=== PATIENT | female | born 2000 | race African-American/Black ===

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

== ENCOUNTER 2020-01-04 19:25 | Emergency (ER) | payer OTHER ==
[~2020-01-04] VITALS: Ht 167.6 cm; Wt 53.0 kg
[2020-01-04 19:30] VITALS: BP 100/66
[2020-01-04] MEDS ORDERED: PRED-220 PO (20:11)
--- NOTE | 2020-01-04 20:12 | PHYS DOC ---
Past History Past Medical History: No Pertinent History Past Surgical History: Other Additional Past Surgical Histo: WISDOM TEETH Alcohol Use: Occasionally Drug Use: None General Adult EDM: Chief Complaint: INSECT BITE HPI: HPI: 19-year-old female presents with concern of insect bites. She has a couple areas on her abdomen that are pruritic as well as her left shoulder and a small area on her left knee. She further indicates that she is having some itching down around her labia and she thinks they are swollen. She does not know why this would be. She has not shaved her pubic hair since the symptoms started. She was outside washing her car yesterday and saw a bunch of small black bugs. She was wearing shorts and a tank top. She was not sure that she got bit but cannot rule it out. She denies vaginal discharge or change in odor. She is not concerned about STD. She has an OB appointment coming up. Review of Systems: Review of Systems: Constitutional: Denies fever or chills Eyes: Denies change in visual acuity HENT: Denies nasal congestion or sore throat Respiratory: Denies cough or shortness of breath Cardiovascular: Denies chest pain or edema GI: Denies abdominal pain, nausea, vomiting, bloody stools or diarrhea : swelling of labia Musculoskeletal: Denies back pain or joint pain Integument: Rash Neurologic: Denies headache, focal weakness or sensory changes Endocrine: Denies polyuria or polydipsia Lymphatic: Denies swollen glands Psychiatric: Denies depression or anxiety Heart Score: Risk Factors: Risk Factors: DM, Current or recent (<one month) smoker, HTN, HLP, family history of CAD, obesity. Risk Scores: Score 0 - 3: 2.5% MACE over next 6 weeks - Discharge Home Score 4 - 6: 20.3% MACE over next 6 weeks - Admit for Clinical Observation Score 7 - 10: 72.7% MACE over next 6 weeks - Early Invasive Strategies Allergies: Allergies: Allergies Coded Allergies Type Severity Reaction Last Updated Verified ciprofloxacin Allergy Unknown 06/05/19 Yes Physical Exam: PE: Constitutional: Well developed, well nourished, no acute distress, non-toxic appearance. [] HENT: Normocephalic, atraumatic, bilateral external ears normal, oropharynx moist, no oral exudates, nose normal. [] Eyes: PERRLA, EOMI, conjunctiva normal, no discharge. [] Neck: Normal range of motion, no tenderness, supple, no stridor. [] Cardiovascular: Heart rate regular rhythm, no murmur [] Lungs & Thorax: Bilateral breath sounds clear to auscultation [] Abdomen: Bowel sounds normal, soft, no tenderness, no masses, no pulsatile masses. [] Skin: Small erythematous patches that are flat of the abdomen, left shoulder, left knee. There are couple well-circumscribed papules in the cleft of the buttocks. No obvious insect bite locations. [] Back: No tenderness, no CVA tenderness. [] Extremities: No tenderness, no cyanosis, no clubbing, ROM intact, no edema. [] Neurologic: Alert and oriented X 3, normal motor function, normal sensory function, no focal deficits noted. [] Psychologic: Affect normal, judgement normal, mood normal. : Patient's external and internal labia did not appear significantly swollen. [] Current Patient Data: Labs: Laboratory Tests Test 01/04/20 20:03 POC Urine HCG, Qualitative hcg negative (Negative) EKG: EKG: [] Radiology/Procedures: Radiology/Procedures: [] Course & Med Decision Making: Course & Med Decision Making Pertinent Labs and Imaging studies reviewed. (See chart for details) Patient does appear to have some areas of skin irritation. I am not sure if these are insect bites if she got another substance on her skin that is any irritants. I will go and treat her with prednisone for 4 days. We will give the first dose in the ED. she is stable for discharge at this time. [] Sunny Disclaimer: Sunny Disclaimer: This electronic medical record was generated, in whole or in part, using a voice recognition dictation system. Departure Departure: Impression: Primary Impression: Rash and nonspecific skin eruption Disposition: 01 HOME SELF CARE/HOMELESS Condition: STABLE Referrals: ELLIOT PATEL (PCP) Patient Instructions: Rash, [id number] Scripts Prednisone (PREDNISONE) 10 Mg Tablet 40 MG PO DAILY for rash for 3 Days, #12 TAB Prov: MAURICE CHANCE DO 01/04/20 MAURICE CHANCE DO Jan 04, 2020 20:12
[2020-01-04] MEDS ORDERED: predniSONE 10 MG TABLET PO ONE (20:15)
[2020-01-04 20:28] LABS: AMPHETAMINE/METHAMPHETAMINE NEG (NEG); BARBITURATES NEG (NEG); BENZODIAZEPINES NEG (NEG); CANNABINOIDS POS (NEG); COCAINE NEG (NEG); METHADONE NEG (NEG); OPIATES NEG (NEG); PHENCYCLIDINE NEG (NEG)
[2020-01-04 20:36] LABS: BILIRUBIN,URINE NEG (NEG); CLARITY,URINE HAZY; COLOR,URINE YELLOW; GLUCOSE,URINE NEG (NEG)
[2020-01-04 20:37] LABS: NITRITE,URINE NEG (NEG); UROBILINOGEN,URINE 0.2 mg/dL (0.2 mg/dL)
[2020-01-04 20:38] LABS: BACTERIA,URINE MOD /HPF (0-FEW); RBC,URINE RARE /HPF (0-2); SQUAMOUS EPITHELIAL CELL,UR FEW /LPF
== END 2020-01-04 20:25 | disposition home or self-care (01) ==
LOC: ER 19:25
DX: R21 Rash and other nonspecific skin eruption (principal); L29.9 Pruritus, unspecified; N94.89 Other specified conditions associated with female genital organs and menstrual cycle; Z88.1 Allergy status to other antibiotic agents
CPT/HCPCS: 36415; 80307; 81001; 81025; 87086; 99283; J7512

== ENCOUNTER 2020-07-04 05:07 | Emergency (ER) | payer OTHER ==
[~2020-07-04] VITALS: Ht 175.3 cm; Wt 54.5 kg
[~2020-07-04 05:07] MED LIST: PRED-220 PO
[2020-07-04 05:19] VITALS: BP 121/89
[2020-07-04] MEDS ORDERED: ONDANSETRON PF 4 MG/2 ML VIAL. IVP ONE (05:30)
[2020-07-04] MEDS ORDERED: IV NORMAL SALINE 1,000ML 1,000 ML IV ONE (05:30)
--- NOTE | 2020-07-04 05:36 | PHYS DOC ---
Past History Past Medical History: No Pertinent History (MAURICE CHANCE DO) Past Surgical History: Other Additional Past Surgical Histo: WISDOM TEETH (MAURICE CHANCE DO) Additional Smoking Information: vape pen Alcohol Use: None Drug Use: None (MAURICE CHANCE DO) General Adult EDM: Chief Complaint: WEAKNESS/GENERALIZED HPI: HPI: 19-year-old female presents after taking an unknown substance at home. The patient was having an argument with her boyfriend and she took a pill that was not marked that she had at home. She thought it was a Xanax. This was between 90 and 120 minutes ago. The patient now feels tired and her boyfriend believes her mentation is slower than normal. She denies fever or chills. She has some mild nausea. She was not trying to harm herself. She states that she only took 1 pill. She has no other complaints at this time. (MAURICE CHANCE DO) Review of Systems: Review of Systems: Constitutional: Denies fever or chills Eyes: Denies change in visual acuity HENT: Denies nasal congestion or sore throat Respiratory: Denies cough or shortness of breath Cardiovascular: Denies chest pain or edema GI: Nausea. Denies abdominal pain, vomiting, bloody stools or diarrhea : Denies dysuria Musculoskeletal: Denies back pain or joint pain Integument: Denies rash Neurologic: Fatigued, altered mental status. Endocrine: Denies polyuria or polydipsia Lymphatic: Denies swollen glands Psychiatric: Denies depression or anxiety (MAURICE CHANCE DO) Current Medications: Current Meds: Current Medications Medications (Trade) Dose Ordered Sig/Fer Start Time Stop Time Status Last Admin Dose Admin Sodium Chloride 1,000 ml @ 1,000 mls/hr 1X ONCE 07/04/20 05:30 07/04/20 06:29 (MAURICE CHANCE DO) Allergies: Allergies: Allergies Coded Allergies Type Severity Reaction Last Updated Verified ciprofloxacin Allergy Unknown 07/04/20 Yes (MAURICE CHANCE DO) Physical Exam: PE: Constitutional: Well developed, well nourished, no acute distress, mildly intoxicated appearance. [] HENT: Normocephalic, atraumatic, bilateral external ears normal, oropharynx moist, no oral exudates, nose normal. [] Eyes: PERRLA, EOMI, conjunctiva normal, no discharge. [] Neck: Normal range of motion, no tenderness, supple, no stridor. [] Cardiovascular: Heart rate regular rhythm, no murmur [] Lungs & Thorax: Bilateral breath sounds clear to auscultation [] Abdomen: Bowel sounds normal, soft, no tenderness, no masses, no pulsatile masses. [] Skin: Warm, dry, no erythema, no rash. [] Back: No tenderness, no CVA tenderness. [] Extremities: No tenderness, no cyanosis, no clubbing, ROM intact, no edema. [] Neurologic: Alert and oriented X 3, normal motor function, normal sensory function, no focal deficits noted. Answers questions appropriately. Slow to answer questions. [] Psychologic: Affect normal, judgement normal, mood normal. [] (MAURICE CHANCE DO) PE: Constitutional: Well developed, well nourished, no acute distress, non-toxic appearance HENT: Normocephalic, atraumatic Eyes: PERRL, EOMI, conjunctiva normal, no discharge Neck: Normal range of motion, no tenderness, supple Lungs & Thorax: No respiratory distress, equal chest rise and fall Abdomen: Soft, no tenderness Skin: Warm, dry, no erythema, no rash Back: No tenderness, no CVA tenderness Extremities: No tenderness, ROM intact, no edema Neurologic: Alert and oriented X 3, normal motor function, normal sensory function, no focal deficits noted Psychologic: Affect normal, judgment normal (CINTIA PATEL DO) Current Patient Data: Vital Signs: Vital Signs Date Time Temp Pulse Resp B/P (MAP) Pulse Ox O2 Delivery O2 Flow Rate FiO2 07/04/20 05:19 98.8 69 16 121/89 (100) 100 (MAURICE CHANCE DO) EKG: EKG: [] (MAURICE CHANCE DO) Radiology/Procedures: Radiology/Procedures: [] (MAURICE CHANCE DO) Heart Score: C/O Chest Pain: N/A Risk Factors: Risk Factors: DM, Current or recent (<one month) smoker, HTN, HLP, family history of CAD, obesity. Risk Scores: Score 0 - 3: 2.5% MACE over next 6 weeks - Discharge Home Score 4 - 6: 20.3% MACE over next 6 weeks - Admit for Clinical Observation Score 7 - 10: 72.7% MACE over next 6 weeks - Early Invasive Strategies (MAURICE CHANCE DO) Course & Med Decision Making: Course & Med Decision Making Pertinent Labs and Imaging studies reviewed. (See chart for details) The patient appears to be mildly intoxicated or altered. She is able to answer questions. She is fully aware of her surroundings. I have ordered for Zofran, liter normal saline, lab and urine work-up. These are pending at this time. I am signing the patient out to Dr. Patel at 0600. [] (MAURICE CHANCE DO) Course & Med Decision Making 0600- sign out received from Dr. Chance for patient with generalized malaise after taking some "unknown "pill. Patient's labs pending at time of signout. Patient seen and evaluated by myself. Labs without significant abnormality. Patient stable for discharge with outpatient follow-up with PCP. Discussed findings and plan with patient, who acknowledges understanding and agreement. (CINTIA PATEL DO) Dragon Disclaimer: Dragon Disclaimer: This electronic medical record was generated, in whole or in part, using a voice recognition dictation system. (MAURICE CHANCE DO) Departure Departure: Impression: Primary Impression: Fatigue Qualified Codes: R53.83 - Other fatigue Additional Impression: Drug ingestion Disposition: HOME / SELF CARE / HOMELESS Condition: STABLE Referrals: PCP,NO (PCP) Patient Instructions: Fatigue, Sedative Ingestion Additional Instructions: Increase fluid hydration. MAURICE CHANCE DO Jul 04, 2020 05:36 CINTIA PATEL DO Jul 04, 2020 06:30
[2020-07-04 06:03] LABS: BASO % 1 % (0-3); EOS # 0.1 x10^3/uL (0.0-0.7); EOS % 2 % (0-3); HEMATOCRIT 39.6 % (36.0-47.0); HEMOGLOBIN 12.7 g/dL (12.0-15.5); LYMPH # 1.5 x10^3/uL (1.0-4.8); LYMPH % 21 % (24-48); MEAN CORPUSCULAR HEMOGLOBIN 27 pg (25-35); MEAN CORPUSCULAR HGB CONC 32 g/dL (31-37); MEAN CORPUSCULAR VOLUME 83 fL (79-100); MONO # 0.9 x10^3/uL (0.0-1.1); MONO % 13 % (0-9); NEUT # 4.6 x10^3uL (1.8-7.7); NEUT % 64 % (31-73); PLATELET COUNT 285 x10^3/uL (140-400); RED BLOOD COUNT 4.77 x10^6/uL (3.50-5.40); RED CELL DISTRIBUTION WIDTH 13.6 % (11.5-14.5); WHITE BLOOD COUNT 7.2 x10^3/uL (4.0-11.0)
[2020-07-04 06:13] LABS: CALCIUM 9.3 mg/dL (8.5-10.1); CREATININE 0.7 mg/dL (0.6-1.0); GFR 130.4; POTASSIUM 3.5 mmol/L (3.5-5.1)
[2020-07-04 06:19] LABS: ALBUMIN 4.1 g/dL (3.4-5.0); ALBUMIN/GLOBULIN RATIO 1.1 (1.0-1.7); TOTAL BILIRUBIN 0.4 mg/dL (0.2-1.0); TOTAL PROTEIN 7.7 g/dL (6.4-8.2)
[2020-07-04 06:47] LABS: BARBITURATES NEG (NEG); BENZODIAZEPINES NEG (NEG); CANNABINOIDS POS (NEG); COCAINE NEG (NEG); METHADONE NEG (NEG); OPIATES NEG (NEG); PHENCYCLIDINE NEG (NEG)
[2020-07-04 06:59] LABS: BILIRUBIN,URINE NEG (NEG); CLARITY,URINE CLOUDY; COLOR,URINE YELLOW; GLUCOSE,URINE NEG (NEG)
[2020-07-04 07:00] LABS: BACTERIA,URINE FEW /HPF (0-FEW); GRANULAR CASTS,URINE OCC /HPF; HYALINE CASTS, URINE OCC /HPF; NITRITE,URINE NEG (NEG); RBC,URINE 0 /HPF (0-2); SQUAMOUS EPITHELIAL CELL,UR MANY /LPF; UROBILINOGEN,URINE 0.2 mg/dL (0.2 mg/dL)
[2020-07-04 07:08] LABS: AMPHETAMINE/METHAMPHETAMINE NEG (NEG)
== END 2020-07-04 06:41 | disposition home or self-care (01) ==
LOC: ER 05:07
DX: R53.83 Other fatigue (principal); R41.82 Altered mental status, unspecified; T50.995A Adverse effect of other drugs, medicaments and biological substances, initial encounter; F17.220 Nicotine dependence, chewing tobacco, uncomplicated; Z88.1 Allergy status to other antibiotic agents; Y92.89 Other specified places as the place of occurrence of the external cause
CPT/HCPCS: 36415; 80053; 80307; 81001; 81025; 85025; 96360; 99283; J7030

== ENCOUNTER 2021-02-02 13:22 | Emergency (ER) | payer OTHER ==
[~2021-02-02] VITALS: Ht 172.7 cm; Wt 58.4 kg
--- NOTE | 2021-02-02 14:13 | PHYS DOC ---
Past History Past Medical History: No Pertinent History Additional Past Medical Histor: Lupus, Rheumatoid arthritis (JOSIAHCELESTINA Puga [employer]) Past Surgical History: Other Additional Past Surgical Histo: WISDOM TEETH (CELESTINA HOLGUIN [employer] MANAGER) Alcohol Use: None Drug Use: None (CELESTINA HOLGUIN [employer] MANAGER) Adult General Chief Complaint Chief Complaint: VAGINAL BLEEDING [facility] Patient is a 20-year-old female patient 2 para 1 currently 11 weeks presenting to the ED today complaining of vaginal bleeding in that began this morning. Patient denies any trauma. Denies any abdominal pain or cramping. Denies any back pain. Denies any nausea or vomiting. She states she has been following up with [employer]. (CELESTINA HOLGUIN [employer]ANTATION MANAGER) Review of Systems Review of Systems Constitutional: Denies fever or chills [] Eyes: Denies change in visual acuity, redness, or eye pain [] HENT: Denies nasal congestion or sore throat [] Respiratory: Denies cough or shortness of breath [] Cardiovascular: No additional information not addressed in [facility] [] GI: Reports vaginal bleeding in . Denies abdominal pain, nausea, vomiting, bloody stools or diarrhea [] : Denies dysuria or hematuria [] Musculoskeletal: Denies back pain or joint pain [] Integument: Denies rash or skin lesions [] Neurologic: Denies headache, focal weakness or sensory changes [] All other systems were reviewed and found to be within normal limits, except as documented in this note. (CELESTINA HOLGUIN [employer] MANAGER) Allergies Allergies Allergies Coded Allergies Type Severity Reaction Last Updated Verified ciprofloxacin Allergy Unknown 02/02/21 Yes (NEILCELESTINA DAVE [employer] MANAGER) Physical Exam Physical Exam Constitutional: Well developed, well nourished, no acute distress, non-toxic appearance. [] HENT: Normocephalic, atraumatic, bilateral external ears normal, oropharynx moist, no oral exudates, nose normal. [] Eyes: PERRLA, EOMI, conjunctiva normal, no discharge. [] Neck: Normal range of motion, no tenderness, supple, no stridor. [] Cardiovascular:Heart rate regular rhythm, no murmur [] Lungs & Thorax: Bilateral breath sounds clear to auscultation [] Abdomen: Bowel sounds normal, soft, no tenderness, no masses, no pulsatile masses. [] Pelvic exam External pelvic appears normal, cervix is visualized, closed, no CMT, small amount of bright red blood in the vaginal vault Skin: Warm, dry, no erythema, no rash. [] Back: No tenderness, no CVA tenderness. [] Extremities: No tenderness, no cyanosis, no clubbing, ROM intact, no edema. [] Neurologic: Alert and oriented X 3, normal motor function, normal sensory function, no focal deficits noted. [] Psychologic: Affect normal, judgement normal, mood normal. [] (CELESTINA HOLGUIN APRN) Current Patient Data Vital Signs Vital Signs Date Time Temp Pulse Resp B/P (MAP) Pulse Ox O2 Delivery O2 Flow Rate FiO2 02/02/21 13:31 98.0 74 18 109/54 (72) 100 Lab Results Laboratory Tests Test 02/02/21 13:47 POC Urine HCG, Qualitative hcg positive (Negative) (CELESTINA HOLGUIN APRN) EKG EKG [] (CELESTINA HOLGUIN APRN) Radiology/Procedures Radiology/Procedures []PROCEDURE: PREG 1ST TRIMESTER Obstetrical ultrasound first trimester 02/02/2021. Reason for exam: Vaginal bleeding. Cramping. Last menstrual period reportedly 11/12/2020. FINDINGS: There is an intrauterine gestational sac. This contains a small fetus. Estimated age by crown-rump length measurement would be 10 weeks 2 days. There is no gross anomaly. A yolk sac is visible. Scanning with hyde scale, 2-D and color Doppler shows no cardiac activity. No hemorrhage is seen adjacent to the sac. There is no adnexal mass or free fluid. Ovaries were not well seen. IMPRESSION: Findings suggest demise. FOR INTERNAL CODING PURPOSES Critical result: Findings discussed with ER at 02/02/2021 4:07 PM. RESULT CODE: (C) Electronically signed by: Lou Zavala Jr., MD (02/02/2021 4:07 PM) [id number] DICTATED AND SIGNED BY: LOU ZAVALA Jr, MD DATE: 02/02/21 1600 CC: EVITA JAIN APRN; CELESTINA HOLGUIN APRN ~MTH0 0 (CELESTINA HOLGUIN APRN) Heart Score C/O Chest Pain: N/A Risk Factors: Risk Factors: DM, Current or recent (<one month) smoker, HTN, HLP, family history of CAD, obesity. Risk Scores: Risk Factors: DM, Current or recent (<one month) smoker, HTN, HLP, family history of CAD, obesity. (CELESTINA HOLGUIN APRN) Course & Med Decision Making Course & Med Decision Making Pertinent Labs and Imaging studies reviewed. (See chart for details) This is a 20-year-old female patient 2 para 1 currently 11 weeks presenting today complaining of vaginal bleeding in that began today. No pain. Positive urine history, beta-hCG 05324 CBC with a normal WBC, hemoglobin 11.7 with normal hematocrit, UA negative for infection OB ultrasound there is an intrauterine gestational sac. This contains a small fetus. Estimated age by crown-rump length measurement would be 10 weeks 2 days. There is no gross anomaly. A yolk sac is visible. Scanning with hyde scale, 2-D and color Doppler shows no cardiac activity. No hemorrhage is seen adjacent to the sac.Findings suggest demise. Negative, RhoGam was given in the ED. Above results were discussed with patient. She was discharged to home, please inform this will hopefully pass on its own. She was instructed to contact her [employer] C[employer]FTSM[facility] tomorrow to set up a follow-up appointment. She was provided return precautions (CELESTINA HOLGUIN APRN) Course & Med Decision Making I was the Attending physician on the above date of service of this patient. This patient was evaluated, examined, treated, and dispositioned from the emergency department by the mid-level practitioner. I reviewed case with WE[employer] and agreed to need for RhoGam and close [employer] follow-up for definitive management Electronically signed, Марина Pepe DO (МАРИНА PEPE DO) Sunny Disclaimer Sunny Disclaimer This electronic medical record was generated, in whole or in part, using a voice recognition dictation system. (CELESTINA HOLGUIN APRN) Departure Departure: Impression: Primary Impression: demise Additional Impression: Need for rhogam due to Rh negative mother Disposition: HOME / SELF CARE / HOMELESS Condition: STABLE Referrals: EVITA JAIN APRN (PCP) Please call your doctor tomorrow and set up a follow up appointment. Patient Instructions: Intrauterine Demise Additional Instructions: You were evaluated in the emergency room for vaginal bleeding in , unfortunately you are have demise/ fetus at 10 weeks 2 days. Typically this will pass on its own as blood. You will bleed and have cramping at times more heavy than normal. If you have uncontrolled bleeding or pain please return to the Ed. Please contact your OBGYN tomorrow and set up a follow up appointment as soon as you can. Your blood group is O negative. You were given rhogham injection. Problem Qualifiers CELESTINA HOLGUIN APRN Feb 02, 2021 14:13 МАРИНА PEPE DO Feb 04, 2021 06:58
[2021-02-02 14:32] LABS: BILIRUBIN,URINE NEG (NEG); CLARITY,URINE CLEAR; COLOR,URINE YELLOW; GLUCOSE,URINE NEG (NEG); NITRITE,URINE NEG (NEG); UROBILINOGEN,URINE 0.2 mg/dL (0.2 mg/dL)
[2021-02-02 14:33] LABS: BACTERIA,URINE 0 /HPF (0-FEW); RBC,URINE OCC /HPF (0-2); SQUAMOUS EPITHELIAL CELL,UR MOD /LPF; WBC,URINE 0 /HPF (0-4)
[2021-02-02 14:48] LABS: BASO % 0 % (0-3); EOS # 0.2 x10^3/uL (0.0-0.7); EOS % 3 % (0-3); HEMATOCRIT 36.6 % (36.0-47.0); HEMOGLOBIN 11.7 g/dL (12.0-15.5); LYMPH % 14 % (24-48); MEAN CORPUSCULAR HEMOGLOBIN 27 pg (25-35); MEAN CORPUSCULAR HGB CONC 32 g/dL (31-37); MEAN CORPUSCULAR VOLUME 83 fL (79-100); MONO # 0.5 x10^3/uL (0.0-1.1); MONO % 7 % (0-9); NEUT # 5.5 x10^3uL (1.8-7.7); NEUT % 76 % (31-73); PLATELET COUNT 270 x10^3/uL (140-400); RED BLOOD COUNT 4.41 x10^6/uL (3.50-5.40); RED CELL DISTRIBUTION WIDTH 13.4 % (11.5-14.5); WHITE BLOOD COUNT 7.2 x10^3/uL (4.0-11.0)
[2021-02-02 15:01] LABS: CALCIUM 9.2 mg/dL (8.5-10.1); CREATININE 0.5 mg/dL (0.6-1.0); GFR 190.3; POTASSIUM 4.3 mmol/L (3.5-5.1)
[2021-02-02 15:06] LABS: ALBUMIN 3.7 g/dL (3.4-5.0); ALBUMIN/GLOBULIN RATIO 1.2 (1.0-1.7); TOTAL BILIRUBIN 0.3 mg/dL (0.2-1.0); TOTAL PROTEIN 6.9 g/dL (6.4-8.2)
--- NOTE | 2021-02-02 16:09 | RAD ---
Obstetrical ultrasound first trimester 02/02/2021. Reason for exam: Vaginal bleeding. Cramping. Last menstrual period reportedly 11/12/2020. FINDINGS: There is an intrauterine gestational sac. This contains a small fetus. Estimated age by quality control microbiologist wn-rump length measurement would be 10 weeks 2 days. There is no gross anomaly. A yolk sac is visible . Scanning with hyde scale, 2-D and color Doppler shows no cardiac activity. No hemorrhage is seen ad jacent to the sac. There is no adnexal mass or free fluid. Ovaries were not well seen. IMPRESSION: Findings suggest demise. FOR INTERNAL CODING PURPOSES Critical result: Findings discussed with ER at 02/02/2021 4:07 PM. RESULT CODE: (C) Electronically signed by: Vamsi Zavala Jr., MD (02/02/2021 4:07 PM) [id number]
[2021-02-02 17:30] VITALS: BP 116/66
[2021-02-04 17:14] LABS: CHLAMYDIA PROBE Negative (Negative)
== END 2021-02-02 17:45 | disposition home or self-care (01) ==
LOC: ER 13:22
DX: O36.4XX0 Maternal care for intrauterine death, not applicable or unspecified (principal); O36.0910 Maternal care for other rhesus isoimmunization, first trimester, not applicable or unspecified; O46.91 Antepartum hemorrhage, unspecified, first trimester; Z3A.11 11 weeks gestation of pregnancy; Z88.1 Allergy status to other antibiotic agents
CPT/HCPCS: 36415; 76801; 80053; 81001; 81025; 84702; 85025; 86850; 86900; 86901; 87491; 87591; 96372; 99285; J2790; Q0111

== ENCOUNTER 2021-04-10 15:48 | Emergency (ER) | payer OTHER ==
[~2021-04-10] VITALS: Ht 172.7 cm; Wt 58.4 kg
[2021-04-10 16:56] VITALS: BP 117/59
[2021-04-10] MEDS ORDERED: BENZ-8 PO (17:03)
--- NOTE | 2021-04-10 17:03 | PHYS DOC ---
Past History Past Medical History: Arthritis Additional Past Medical Histor: Lupus, Rheumatoid arthritis (GAYATRI GALVEZ) Past Surgical History: Other Additional Past Surgical Histo: WISDOM TEETH (GAYATRI GALVEZ) Alcohol Use: None Drug Use: None (AGYATRI GALVEZ) General Adult EDM: Chief Complaint: GENERALIZED BODY ACHES HPI: HPI: Patient is a 20 year old female who presents with 2-day history of body aches, chills and cough. Patient reports that multiple family members have tested positive for COVID recently. Patient denies vaccination against COVID-19 and annual flu shot. Patient is presenting for COVID testing as well as a note for work. (GAYATRI GALVEZ) Review of Systems: Review of Systems: ROS negative or noncontributory except as mentioned in HPI. (GAYATRI GALVEZ) Allergies: Allergies: Allergies Coded Allergies Type Severity Reaction Last Updated Verified ciprofloxacin Allergy Unknown 02/02/21 Yes (GAYATRI GALVEZ) Physical Exam: PE: Constitutional: Well developed, well nourished, no acute distress, non-toxic appearance. HENT: Normocephalic, atraumatic, bilateral external ears normal, nose normal. Eyes: PERRLA, EOMI, conjunctiva normal, no discharge. Neck: Normal range of motion, no stridor. Abdomen: Bowel sounds normal, soft, no tenderness, no masses, no pulsatile masses. Skin: Warm, dry, no erythema, no rash. (GAYATRI GALVEZ) Current Patient Data: Vital Signs: VS - Last 72 Hours, by Label Date Time Temp Pulse Resp B/P (MAP) Pulse Ox O2 Delivery O2 Flow Rate FiO2 04/10/21 16:56 99.1 91 18 117/59 (78) 100 (GAYATRI GALVEZ) Heart Score: C/O Chest Pain: No (GAYATRI GALVEZ) Course & Med Decision Making: Course & Med Decision Making Pertinent Labs and Imaging studies reviewed. (See chart for details) Patient is a 20-year-old female who presents to the emergency department today for COVID-19 testing as well as a work note. As the patient has had symptoms for 2 days and multiple first-degree family member exposures that tested positive for COVID-19, she is clinically diagnosed with COVID-19. I will defer any viral swab testing at this time, as there is a shortage of swabs at this time. Patient was given isolation instruction, supportive treatment measures and return precautions. She understands and is agreeable to discharge plan. (GAYATRI GALVEZ) Course & Med Decision Making I was the Attending physician on the above date of service of this patient. This patient was evaluated, examined, treated, and dispositioned from the emergency department by the mid-level practitioner. Although I was working at the time , no assistance was requested. Electronically signed, Марина Pepe DO (МАРИНА PEPE DO) Sunny Disclaimer: Sunny Disclaimer: This electronic medical record was generated, in whole or in part, using a voice recognition dictation system. (GAYATRI GALVEZ) Departure Departure: Impression: Primary Impression: Clinical diagnosis of COVID-19 Disposition: HOME / SELF CARE / HOMELESS Condition: STABLE Referrals: EVITA JAIN APRN (PCP) Patient Instructions: Viral Syndrome Additional Instructions: Follow the following supportive treatment measures: - Cool mist humidifier with plain water at bedside while you sleep - Mucinex (guaifenesin) per box instructions - Tessalon perles (benzonatate) for cough, especially at night before bed - Alternate ibuprofen and acetaminophen every four hours for body aches/fever/headache If antibiotics were prescribed, take them as directed. You have been tested for or diagnosed with COVID-19 infection. It is an infection caused by a new type of coronavirus. COVID-19 will cause cold-like or mild flu symptoms in most. It can cause more severe symptoms like problems breathing in some. There is no treatment for COVID-19. The body will clear the infection over time. Self-care will help to ease discomfort. Steps to Take: - Rest as needed. - Choose healthy foods including fruits and vegetables. Drink water throughout the day. - Get plenty of sleep each night. - If you smoke, try to quit. It may ease breathing. - Avoid alcohol. - Keep Others Healthy - The virus can spread to others. Droplets are released every time you sneeze or cough. The droplets can get into the mouth, nose, or eyes of people near you and lead to infection. To lower the chances of spreading COVID-19 to others: Stay at home until your doctor has said it is safe to leave. If you tested positive this will mean staying isolated until both of the following are true: - At least 7 days have passed since the start of illness. - You are free of fever for at least 72 hours without the use of medicine. During this time: - Avoid public areas, events, or transportation. Do not return to work or school until your doctor has said it is safe to do so. - Call ahead if you need to go to a medical center. Let them know you may have COVID-19. It will help them guide you where to go. They may also ask you to wear a facemask when you come to the office. - If you call for emergency medical services, let them know you may have COVID- 19. While at home: - Try to avoid close contact with others. Stay about 6 feet away. - If possible, spend most of your time in a separate room from others. - Use a face mask if you will be in close contact with others such as sharing a room or vehicle. - Have someone wipe down common surfaces in the home. Use household test examiner every day on areas like doorknobs, counters, or sinks. - Cough or sneeze into a tissue. Throw the tissue away right after use. If a tissue is not available, cough or sneeze into your elbow. - Wash your hands often. Wash them after sneezing or coughing. Use soap and water and wash or at least 20 seconds. Alcohol based hand still cleaner tube can be used if soap and water is not available. - Do not prepare food for others. Avoid sharing personal items like forks, spoons, or toothbrushes. - Avoid close contact with pets while you are sick. There is no evidence of the virus passing to pets. This is a safety step until more is known about this virus. - Isolation can be frustrating. Social interaction can help. Keep in touch with friends and family through phone and tech options. You can still interact with others in your home, just keep a safe distance of about 6 feet. Follow-up: - Your doctors office will check in with you to see if there are any changes in your health. - You may be asked to keep track of symptoms to share with them. They will also let you know when you are clear to be in public again. Contact your doctor if your recovery is not going as you expect. Get emergency care if you have problems such as: - Trouble breathing with oxygen saturation <90% - Nonstop chest pain or pressure - Changes in awareness, confusion, or problems waking - Lips or face have bluish color - Worsening of symptoms If you think you have an emergency, call for emergency medical services right away. [place] [facility] [place] [facility] Benzonatate (BENZONATATE) 100 Mg Capsule 1-2 CAP PO HS for cough, #20 CAP Prov: GAYATRI GALVEZ 04/10/21 GAYATRI GALVEZ Apr 10, 2021 17:03 МАРИНА PEPE DO Apr 13, 2021 02:28
== END 2021-04-10 17:24 | disposition home or self-care (01) ==
LOC: ER 15:48
DX: U07.1 COVID-19 (principal); M06.9 Rheumatoid arthritis, unspecified; Z88.1 Allergy status to other antibiotic agents
CPT/HCPCS: 99283